=== PATIENT | female | born 1975 | race Asian ===

== ENCOUNTER 2023-03-15 19:09 | Emergency (ER) | payer SELFPAY | END 2023-03-15 20:03 | disposition left against medical advice (07) | LOC: EMS 19:10 | DX: R42 Dizziness and giddiness (principal); Z53.21 Procedure and treatment not carried out due to patient leaving prior to being seen by health care provider ==

== ENCOUNTER 2023-03-23 18:12 | Emergency (ER) | payer MEDICAID | END 2023-03-23 19:10 | disposition left against medical advice (07) | LOC: EMS 18:30 | DX: Z53.21 Procedure and treatment not carried out due to patient leaving prior to being seen by health care provider (principal) ==

== ENCOUNTER 2023-05-21 00:11 | Emergency (ER) | payer MEDICAID ==
[~2023-05-21] VITALS: Ht 170.2 cm; Wt 63.2 kg
[2023-05-21 00:16] VITALS: BP 135/84; PULSE 98; RESP 16; TEMP 98.5
== END 2023-05-21 00:55 | disposition left against medical advice (07) ==
LOC: EDSEX 00:11 → EMS 00:11
DX: R04.0 Epistaxis (principal); Z53.21 Procedure and treatment not carried out due to patient leaving prior to being seen by health care provider
CPT/HCPCS: 99281; Z7502

== ENCOUNTER 2023-05-25 05:40 | Emergency (ER) | payer MEDICAID ==
[~2023-05-25] VITALS: Ht 170.2 cm; Wt 63.2 kg
[2023-05-25 06:36] LABS: BASOPHILS % (AUTO) 0.5 % (0.0-2.0); EOSINOPHILS % (AUTO) 0 % (1.0-6.0); HEMATOCRIT 37.9 % (41-53); HEMOGLOBIN 12.6 g/dL (13.5-17.5); LYMPHOCYTES # (AUTO) 0.8 K/uL (1.0-4.8); LYMPHOCYTES % (AUTO) 12.2 % (22.0-44.0); MEAN CORPUSCULAR HEMOGLOBIN 29.8 pg (26.0-34.0); MEAN CORPUSCULAR HGB CONC 33.3 G/dL (31.0-37.0); MEAN CORPUSCULAR VOLUME 90 fL (80-100); MONOCYTES # (AUTO) 0.6 K/uL (0.1-1.0); MONOCYTES % (AUTO) 8.6 % (2.0-9.0); NEUTROPHILS # (AUTO) 5.2 K/uL (1.8-7.7); NEUTROPHILS % (AUTO) 78.7 % (40.0-70.0); PLATELET COUNT (AUTO) 253 K/uL (150-450); RED BLOOD CELL COUNT(AUTO) 4.23 MIL/uL (4.50-5.90); WHITE BLOOD COUNT (AUTO) 6.6 K/uL (4.5-11.0)
[2023-05-25] MEDS: SODIUM CHLORIDE 0.9% 1,900 ML IV ONE (06:37)
[2023-05-25] MEDS: ACETAMINOPHEN 500 MG TABLET PO ONE (06:37)
[2023-05-25 06:50] LABS: ANION GAP 9 mmol/L (8-16); CALCIUM, TOTAL 8.5 mg/dL (8.8-10.5); CARBON DIOXIDE 25 mmol/L (22-29); CHLORIDE 98 mmol/L (98-107); CREATININE 0.86 mg/dL (0.60-1.30); GLOMERULAR FILTR. RATE CALC > 60 mL/min (>60); GLUCOSE,RANDOM 110 mg/dL (70-110); POTASSIUM 3.8 mmol/L (3.5-5.1); SODIUM SERUM 132 mmol/L (136-145); UREA NITROGEN, BLOOD 16 mg/dL (7-18)
[2023-05-25 06:57] LABS: COVID AG,FIA SOURCE NASAL SWAB
[2023-05-25 06:57] LABS: LACTIC ACID 0.8 mmol/L (0.4-2.0)
[2023-05-25 06:59] LABS: TROPONIN I-HIGH SENSITIVITY 13 ng/L (<76)
[2023-05-25 07:13] LABS: ALANINE AMINOTRANSFERASE 32 U/L (12-78); ALBUMIN 3.2 g/dL (3.4-5.0); ALKALINE PHOSPHATASE 72 U/L (46-116); ASPARTATE AMINOTRANSFERASE 38 U/L (15-37); BILIRUBIN,TOTAL 0.7 mg/dL (0.1-1.0); CREATINE KINASE, TOTAL ONLY 276 U/L (39-308)
[2023-05-25 07:47] LABS: APPEARANCE,URINE CLEAR (CLEAR); BILIRUBIN,URINE NEGATIVE (NEGATIVE); COLOR,URINE LIGHT YELLOW (YELLOW); GLUCOSE, URINE (UA) NEGATIVE (NEGATIVE); KETONES,URINE NEGATIVE (NEGATIVE); LEUKOCYTE ESTERASE ,URINE NEGATIVE (NEGATIVE); NITRATE,URINE NEGATIVE (NEGATIVE); OCCULT BLOOD,URINE NEGATIVE (NEGATIVE); PROTEIN,URINE NEGATIVE (NEGATIVE); SPECIFIC GRAVITIY, URINE 1.018 (1.003-1.030); UROBILINOGEN,URINE <=1.0 mg/dL (<=1.0)
[2023-05-25 07:56] LABS: INFLUENZA TYPE A NEGATIVE FOR TYPE A (NEGATIVE); INFLUENZA TYPE B POSITIVE FOR TYPE B (NEGATIVE)
[2023-05-25 08:04] LABS: SARS-COV2 (COVID) ANTIGEN,FIA Positive (Negative)
[2023-05-25] MEDS ORDERED: BENZ-227 PO (08:06)
[2023-05-25] MEDS ORDERED: AZIT250T9 PO (08:06)
[2023-05-25 08:19] VITALS: BP 130/74; PULSE 90; RESP 20; TEMP 98.5
== END 2023-05-25 08:30 | disposition home or self-care (01) ==
LOC: EMS 05:41
DX: J10.00 Influenza due to other identified influenza virus with unspecified type of pneumonia (principal); U07.1 COVID-19; Z20.822 Contact with and (suspected) exposure to COVID-19
CPT/HCPCS: 99285; 96360; 71045; 87426; 80053; 81003; 82550; 83605; 84484; 85025; 87040; 87804; 36415; 93005; J7030

== ENCOUNTER 2023-05-31 00:56 | Emergency (ER) | payer MEDICAID ==
[~2023-05-31] VITALS: Ht 172.7 cm; Wt 59.0 kg
[~2023-05-31 00:56] MED LIST: AZIT250T9 PO; BENZ-227 PO
[2023-05-31 01:00] VITALS: TEMP 98.1
[2023-05-31] MEDS ORDERED: KETOROLAC TROMETHAMINE 30 MG/ML VIAL IVP ONE (01:30)
[2023-05-31 01:31] LABS: BASOPHILS % (AUTO) 0.8 % (0.0-2.0); EOSINOPHILS % (AUTO) 1.6 % (1.0-6.0); HEMATOCRIT 39.9 % (41-53); HEMOGLOBIN 13.1 g/dL (13.5-17.5); LYMPHOCYTES # (AUTO) 0.8 K/uL (1.0-4.8); LYMPHOCYTES % (AUTO) 26.3 % (22.0-44.0); MEAN CORPUSCULAR HEMOGLOBIN 29.7 pg (26.0-34.0); MEAN CORPUSCULAR VOLUME 90 fL (80-100); MONOCYTES # (AUTO) 0.5 K/uL (0.1-1.0); MONOCYTES % (AUTO) 15.2 % (2.0-9.0); NEUTROPHILS # (AUTO) 1.7 K/uL (1.8-7.7); NEUTROPHILS % (AUTO) 56.1 % (40.0-70.0); PLATELET COUNT (AUTO) 330 K/uL (150-450); RED BLOOD CELL COUNT(AUTO) 4.43 MIL/uL (4.50-5.90); RED CELL DISTRIBUTION WIDTH 13.8 % (11.5-14.5); WHITE BLOOD COUNT (AUTO) 3.1 K/uL (4.5-11.0)
[2023-05-31] MEDS: ACETAMINOPHEN 500 MG TABLET PO ONE (01:40)
[2023-05-31] MEDS: SODIUM CHLORIDE 0.9% 1,000 ML IV ONE (01:40)
[2023-05-31] MEDS: KETOROLAC TROMETHAMINE 15 MG/ML VIAL IVP ONE (01:40)
[2023-05-31 01:44] LABS: ANION GAP 6 mmol/L (8-16); CALCIUM, TOTAL 9.1 mg/dL (8.8-10.5); CARBON DIOXIDE 30 mmol/L (22-29); CHLORIDE 103 mmol/L (98-107); CREATININE 0.96 mg/dL (0.60-1.30); GLOMERULAR FILTR. RATE CALC > 60 mL/min (>60); GLUCOSE,RANDOM 120 mg/dL (70-110); POTASSIUM 4.8 mmol/L (3.5-5.1); SODIUM SERUM 139 mmol/L (136-145); UREA NITROGEN, BLOOD 16 mg/dL (7-18)
[2023-05-31 01:50] LABS: ALANINE AMINOTRANSFERASE 33 U/L (12-78); ALKALINE PHOSPHATASE 79 U/L (46-116); ASPARTATE AMINOTRANSFERASE 36 U/L (15-37); BILIRUBIN,TOTAL 0.4 mg/dL (0.1-1.0); LIPASE 31 U/L (16-77); TOTAL PROTEIN, SERUM 8.5 g/dL (6.4-8.2)
[2023-05-31 01:53] LABS: APPEARANCE,URINE HAZY (CLEAR); BILIRUBIN,URINE NEGATIVE (NEGATIVE); COLOR,URINE LIGHT YELLOW (YELLOW); GLUCOSE, URINE (UA) NEGATIVE (NEGATIVE); KETONES,URINE NEGATIVE (NEGATIVE); LEUKOCYTE ESTERASE ,URINE NEGATIVE (NEGATIVE); NITRATE,URINE NEGATIVE (NEGATIVE); OCCULT BLOOD,URINE NEGATIVE (NEGATIVE); PH,URINE 7.5 (5.0-8.0); PROTEIN,URINE NEGATIVE (NEGATIVE); SPECIFIC GRAVITIY, URINE 1.015 (1.003-1.030); UROBILINOGEN,URINE <=1.0 mg/dL (<=1.0)
[2023-05-31] MEDS ORDERED: SODIUM CHLORIDE 0.9% 100 ML ONE (02:13)
[2023-05-31] MEDS ORDERED: IOHEXOL 350 MG/ML 100 ML VIAL ONE (02:13)
[2023-05-31 07:00] VITALS: BP 119/77; PULSE 87; RESP 18
== END 2023-05-31 07:50 | disposition home or self-care (01) ==
LOC: EMS 00:57
DX: R10.32 Left lower quadrant pain (principal)
CPT/HCPCS: 99285; 74177; 96374; 96361; 80053; 81003; 83690; 85025; 36415; J1885; Q9967; J7030; J7050

== ENCOUNTER 2023-06-04 19:25 | Emergency (ER) | payer MEDICAID ==
[~2023-06-04] VITALS: Ht 172.7 cm; Wt 61.4 kg
[~2023-06-04 19:25] MED LIST changes: -AZIT250T9 PO
[2023-06-04 19:42] LABS: COVID AG,FIA SOURCE NASAL SWAB
[2023-06-04 19:56] VITALS: BP 116/67; PULSE 97; RESP 18; TEMP 98.3
[2023-06-04 20:03] LABS: SARS-COV2 (COVID) ANTIGEN,FIA Negative (Negative)
[2023-06-04 20:22] LABS: INFLUENZA TYPE B INVALID. RESUBMIT. (NEGATIVE)
[2023-06-04 20:23] LABS: INFLUENZA TYPE A INVALID. RESUBMIT. (NEGATIVE)
== END 2023-06-04 20:44 | disposition home or self-care (01) ==
LOC: EMS 19:25
DX: R42 Dizziness and giddiness (principal); Z86.16 Personal history of COVID-19; Z85.9 Personal history of malignant neoplasm, unspecified; Z20.822 Contact with and (suspected) exposure to COVID-19
CPT/HCPCS: 87804; 99283